=== PATIENT | male | born 1995 | race Hispanic/Latino ===

== ENCOUNTER 2025-01-28 14:50 | Emergency (ER) | payer OTHER ==
[~2025-01-28] VITALS: Ht 170.2 cm; Wt 117.9 kg
[2025-01-28 15:00] VITALS: PULSE 110; RESP 16; TEMP 98.9; O2SAT 100
[2025-01-28] MEDS ORDERED: NAPROXEN250 MG PO (15:21)
== END 2025-01-28 15:30 | disposition home or self-care (01) ==
LOC: ER 15:09
DX: S70.12XA Contusion of left thigh, initial encounter (principal); V43.52XA Car driver injured in collision with other type car in traffic accident, initial encounter; Y92.488 Other paved roadways as the place of occurrence of the external cause
CPT/HCPCS: 99282